=== PATIENT | female | born 1950 | race Native Hawaiian/Other Pacific Islander ===

== ENCOUNTER 2018-10-31 13:59 | Emergency (ER) | payer OTHER ==
[~2018-10-31] VITALS: Ht 162.6 cm; Wt 77.1 kg
[2018-10-31 15:15] VITALS: BP 158/73; TEMP 98.9
== END 2018-10-31 15:19 | disposition home or self-care (01) ==
LOC: ED 13:59
DX: K02.9 Dental caries, unspecified (principal); K04.7 Periapical abscess without sinus
CPT/HCPCS: 96372; 99283; J1885

== ENCOUNTER 2019-11-15 09:35 | Outpatient (CLI) | payer OTHER | END 2019-11-15 22:31 | disposition home or self-care (01) | LOC: RESP 09:35 | DX: I25.10 Atherosclerotic heart disease of native coronary artery without angina pectoris (principal) ==

== ENCOUNTER 2019-12-08 10:27 | Outpatient (CLI) | payer OTHER | END 2019-12-08 19:19 | disposition home or self-care (01) | LOC: US 10:27 | DX: R10.2 Pelvic and perineal pain (principal) ==

== ENCOUNTER 2020-02-29 17:40 | Outpatient (CLI) | payer OTHER | END 2020-02-29 20:18 | disposition home or self-care (01) | LOC: LABW 17:40 | DX: R35.0 Frequency of micturition (principal); R32 Unspecified urinary incontinence | CPT/HCPCS: 81000; 87086; 87088 ==

== ENCOUNTER 2020-05-25 08:19 | Outpatient (CLI) | payer OTHER | END 2020-05-25 23:59 | disposition home or self-care (01) | LOC: MAMMO 08:19 | PROVIDERS: ATTEND Family Medicine | DX: Z00.00 Encounter for general adult medical examination without abnormal findings (principal); Z12.31 Encounter for screening mammogram for malignant neoplasm of breast ==

== ENCOUNTER 2020-11-26 08:32 | Outpatient (CLI) | payer OTHER | END 2020-11-26 19:21 | disposition home or self-care (01) | LOC: RAD 08:32 | PROVIDERS: ATTEND Family Medicine | DX: Z78.0 Asymptomatic menopausal state (principal) ==

== ENCOUNTER 2021-03-21 08:28 | Outpatient (CLI) | payer OTHER | END 2021-03-21 20:01 | disposition home or self-care (01) | LOC: CT 08:28 | PROVIDERS: ATTEND Family Medicine | DX: R42 Dizziness and giddiness (principal); H93.12 Tinnitus, left ear; H66.91 Otitis media, unspecified, right ear ==

== ENCOUNTER 2021-05-12 06:36 | Emergency (ER) | payer OTHER ==
[~2021-05-12] VITALS: Ht 162.6 cm; Wt 77.1 kg
[2021-05-12 11:16] VITALS: BP 154/61; TEMP 98.1
[2021-05-13] MEDS ORDERED: HYDR10TA47A PO (15:08)
[2021-05-13] MEDS ORDERED: METHYLPRED4 M1 PO (15:12)
[2021-05-13] MEDS ORDERED: PROMETHAZINE HY25 MG PO (15:13)
[2021-05-13] MEDS ORDERED: ZOCOR80 MG PO (15:14)
[2021-05-13] MEDS ORDERED: NIFE30TA PO (15:15)
[2021-05-13] MEDS ORDERED: SMZ-TMP DS1 TAB PO (15:16)
[2021-05-13] MEDS ORDERED: EUTHYROX88 MCG PO (15:17)
[2021-05-13] MEDS ORDERED: COZAAR100 MG PO (15:18)
[2021-05-13] MEDS ORDERED: METO-837 PO (15:19)
[2021-05-13] MEDS ORDERED: PREGABALIN50 MG PO (15:21)
[2021-05-13] MEDS ORDERED: ESTRACE VAG (15:25)
[2021-05-13] MEDS ORDERED: ASPIRIN/ENTERIC81 MG PO (15:28)
[2021-05-13] MEDS ORDERED: VITAMIN D125 MCG PO (15:29)
[2021-05-13] MEDS ORDERED: NIACIN SR500 M1 PO (15:30)
[2021-05-13] MEDS ORDERED: PROM25TA52 PO (15:31)
== END 2021-05-12 11:16 | disposition still patient (30) ==
LOC: ED 06:36
DX: M79.605 Pain in left leg (principal); M79.604 Pain in right leg; F60.4 Histrionic personality disorder
CPT/HCPCS: 80307; 96372; 99283; J1170; J2405

== ENCOUNTER 2021-05-13 13:36 | Observation (INO) | payer OTHER ==
[~2021-05-13] VITALS: Ht 162.6 cm; Wt 82.2 kg
[2021-05-13 14:44] LABS: PLATELET COUNT 389 K/uL (152-353)
[2021-05-13 15:07] LABS: POTASSIUM 3.9 mmol/L (3.6-5.2)
[2021-05-13] MEDS ORDERED: HYDR10TA47A PO (15:08)
[2021-05-13] MEDS ORDERED: METHYLPRED4 M1 PO (15:12)
[2021-05-13] MEDS ORDERED: PROMETHAZINE HY25 MG PO (15:13)
[2021-05-13] MEDS ORDERED: ZOCOR80 MG PO (15:14)
[2021-05-13] MEDS ORDERED: NIFE30TA PO (15:15)
[2021-05-13] MEDS ORDERED: SMZ-TMP DS1 TAB PO (15:16)
[2021-05-13] MEDS ORDERED: EUTHYROX88 MCG PO (15:17)
[2021-05-13] MEDS ORDERED: COZAAR100 MG PO (15:18)
[2021-05-13] MEDS ORDERED: METO-837 PO (15:19)
[2021-05-13] MEDS ORDERED: PREGABALIN50 MG PO (15:21)
[2021-05-13] MEDS ORDERED: ESTRACE VAG (15:25)
[2021-05-13] MEDS ORDERED: ASPIRIN/ENTERIC81 MG PO (15:28)
[2021-05-13] MEDS ORDERED: VITAMIN D125 MCG PO (15:29)
[2021-05-13] MEDS ORDERED: NIACIN SR500 M1 PO (15:30)
[2021-05-13] MEDS ORDERED: PROM25TA52 PO (15:31)
[2021-05-13 16:30] VITALS: BP 160/67; TEMP 98.1; Ht 162.6 cm; Wt 82.2 kg
[2021-05-13 20:00] VITALS: BP 140/65; TEMP 97.7
[2021-05-14 04:00] VITALS: BP 166/70; TEMP 98.3
[2021-05-14 05:40] LABS: PLATELET COUNT 374 K/uL (152-353)
[2021-05-14 06:01] LABS: POTASSIUM 4.7 mmol/L (3.6-5.2)
[2021-05-14 08:00] VITALS: BP 105/66; TEMP 97.6
[2021-05-14 12:00] VITALS: BP 163/65; TEMP 97.8
[2021-05-14 20:00] VITALS: BP 138/75; TEMP 98.8
[2021-05-15] VITALS: BP 120/78; TEMP 98.2
[2021-05-15 04:00] VITALS: BP 144/82; TEMP 98.8
[2021-05-15 08:00] VITALS: BP 136/79; TEMP 98.7
[2021-05-15 12:00] VITALS: TEMP 98.1
== END 2021-05-15 14:35 | disposition home health service (06) ==
LOC: MED/SURG 13:36
PROVIDERS: ADMIT Family Medicine; ATTEND Family Medicine
DX: M51.36 Other intervertebral disc degeneration, lumbar region (principal); M62.81 Muscle weakness (generalized); M54.59 Other low back pain; I10 Essential (primary) hypertension; E86.0 Dehydration; R11.2 Nausea with vomiting, unspecified; E03.8 Other specified hypothyroidism; E78.49 Other hyperlipidemia; R13.19 Other dysphagia
CPT/HCPCS: 36415; 80053; 81000; 82550; 82607; 83735; 84443; 85027; 87635; 96366; 96372; 96374; 96375; 99220; G0378; G0379; J1170; J1650; J1885; J2405; J2930; J3490; U0003

== ENCOUNTER 2022-11-25 10:49 | Outpatient (CLI) | payer OTHER ==
[~2022-11-25 10:49] MED LIST: ASPIRIN/ENTERIC81 MG PO; COZAAR100 MG PO; ESTRACE VAG; EUTHYROX88 MCG PO; HYDR10TA47A PO; METHYLPRED4 M1 PO; METO-837 PO; NIACIN SR500 M1 PO; NIFE30TA PO; PREGABALIN50 MG PO; PROM25TA52 PO; PROMETHAZINE HY25 MG PO; SMZ-TMP DS1 TAB PO; VITAMIN D125 MCG PO; ZOCOR80 MG PO
== END 2022-11-25 19:15 | disposition home or self-care (01) ==
LOC: MAMMO 10:49
PROVIDERS: ATTEND Family Medicine
DX: Z12.31 Encounter for screening mammogram for malignant neoplasm of breast (principal)